=== PATIENT | male | born 1955 | race Caucasian/White ===

== ENCOUNTER 2021-02-09 11:16 | Day surgery (SDC) | payer MEDICARE ==
[~2021-02-09] VITALS: Ht 182.9 cm; Wt 101.5 kg
[2021-02-09] MEDS ORDERED: normal saline 1000ml 1,000 ML IV SCH (12:00)
[2021-02-09 12:24] LABS: BASOPHILS # (AUTO) 0.1 X10'3 (0-0.2); BASOPHILS % (AUTO) 0.8 % (0-1); EOSINOPHILS # (AUTO) 0.2 X10'3 (0-0.9); EOSINOPHILS % (AUTO) 3.2 % (0-6); HEMATOCRIT 47.1 % (42.0-52.0); HEMOGLOBIN 15.7 g/dl (14.0-17.9); LYMPHOCYTES # (AUTO) 1.7 X10'3 (1.1-4.8); LYMPHOCYTES % (AUTO) 22.3 % (21-51); MEAN CORPUSCULAR HEMOGLOBIN 30.9 PG (27.0-31.0); MEAN CORPUSCULAR HGB CONC 33.4 g/dL (33.0-36.5); MEAN CORPUSCULAR VOLUME 92.4 FL (78-98); MEAN PLATELET VOLUME 8.5 FL (7.4-10.4); MONOCYTES # (AUTO) 0.5 X10'3 (0-0.9); MONOCYTES % (AUTO) 6.4 % (2-12); NEUTROPHILS # (AUTO) 5.1 X10'3 (1.8-7.7); NEUTROPHILS % (AUTO) 67.3 % (42-75); PLATELET COUNT 214 X10'3 (140-440); RED BLOOD COUNT 5.09 X10'6 (4.70-6.10); RED CELL DISTRIBUTION WIDTH 14.1 % (11.5-14.5); WHITE BLOOD COUNT 7.6 X10'3 (4.5-11.0)
[2021-02-09 12:36] VITALS: BP 172/125
[2021-02-09] MEDS ORDERED: ASCO-134 PO (12:38)
[2021-02-09] MEDS ORDERED: CYAN1TAB41 PO (12:38)
[2021-02-09] MEDS ORDERED: MULT-1142 PO (12:38)
[2021-02-09] MEDS ORDERED: HYDR25TA4 PO (12:38)
[2021-02-09] MEDS ORDERED: FLO0.4C PO (12:38)
[2021-02-09] MEDS ORDERED: HYDR8TAB18 PO (12:38)
[2021-02-09 12:46] VITALS: BP 162/86
[2021-02-09 13:20] VITALS: BP 154/101
[2021-02-09 13:30] VITALS: BP 196/105
== END 2021-02-09 14:20 | disposition home or self-care (01) ==
LOC: SSTAY O 11:16
PROVIDERS: ATTEND Radiology Vascular & Interventional Radiology
DX: E65 Localized adiposity (principal); D47.2 Monoclonal gammopathy; F17.210 Nicotine dependence, cigarettes, uncomplicated; Z79.01 Long term (current) use of anticoagulants; Z79.899 Other long term (current) drug therapy
CPT/HCPCS: 20206; 36415; 49180; 85025; 85610